=== PATIENT | female | born 1950 | race Caucasian/White ===

== ENCOUNTER 2025-01-09 09:41 | Emergency (ER) | payer BC, MEDICARE ==
[2025-01-09] MEDS: Sodium Chloride 0.9% 1,000 ML IV ONE (10:15)
[2025-01-09 10:23] LABS: HEMATOCRIT 40.3 % (34.2-48.2); HEMOGLOBIN 13.4 g/dL (11.4-15.5); MEAN CORPUSCULAR HEMOGLOBIN 33.5 pg (23.9-33.9); MEAN CORPUSCULAR HGB CONC 33.2 g/dL (31.9-34.8); MEAN CORPUSCULAR VOLUME 100.9 fL (76.7-100.5); MEAN PLATELET VOLUME 8.8 fL (7.1-12.4); PLATELET COUNT,PLT 47 x10(3)uL (151-488); RED BLOOD CELL COUNT 3.99 x10(6)uL (3.60-5.20); RED CELL DISTRIBUTION WIDTH 16.1 % (12.3-16.5)
[2025-01-09 10:30] LABS: A/G RATIO 0.5; ALANINE AMINOTRANSFERASE,ALT 63 U/L (12-36); ALBUMIN 2.4 g/dL (3.2-4.6); ALKALINE PHOSPHATASE 170 IU/L (56-112); ASPARTATE AMNIOTRANSFERASE,AST 38 IU/L (5-25); BILIRUBIN TOTAL 0.9 mg/dL (0.1-1.3); BLOOD UREA NITROGEN,BUN 22 mg/dL (7-18); BUN/CREATININE RATIO 12.9 (9-20); CALCIUM 8.5 mg/dL (8.6-10.2); CARBON DIOXIDE,CO2 25 mmol/L (21-32); CHLORIDE,CL 96 mmol/L (100-110); CREATININE 1.7 mg/dL (0.55-1.02); EST CRCL DRUG DOSING (CG) 23.31 mL/min; ESTIMATED GFR 31 mL/min (>60); GLUCOSE RANDOM 113 mg/dL (80-116); PROTEIN TOTAL,TP 7.1 g/dL (6.0-8.0); SODIUM,NA 135 mmol/L (135-145)
[2025-01-09] MEDS: Sodium Chloride 0.9% 10 ML Syringe FLUSH PRN (10:30)
[2025-01-09 10:40] LABS: POTASSIUM,K 2.7 mmol/L (3.5-5.3)
[2025-01-09 10:41] LABS: LACTIC ACID 3.3 mmol/L (0.4-2.0)
[2025-01-09 10:42] LABS: WHITE BLOOD CELL COUNT,WBC 0.8 x10-3/uL (3.0-10.3)
[2025-01-09 11:09] LABS: BAND PERCENT MAN 4 % (0-6); EOSINOPHILS PERCENT MAN 8 % (0-5); LYMPHOCYTES PERCENT MAN 4 % (13-37); MONOCYTES PERCENT MAN 8 % (4-12); SEG NEUTROPHILS PERCENT MAN 76 % (46-82)
[2025-01-09] MEDS: cefTRIAXone 1 GM Vial IVPUSH ONE (11:10)
[2025-01-09] MEDS: Azithromycin 500 MG Tab PO ONE (11:21)
[2025-01-09] MEDS: Potassium Chloride 20 MEQ Tab.ER PO ONE (11:21)
[2025-01-09] MEDS: Sodium Chloride 0.9% 1,000 ML IV SCH (12:00)
== END 2025-01-09 15:49 ==
LOC: FB.ED 09:41
DX: J18.9 Pneumonia, unspecified organism (principal); C90.02 Multiple myeloma in relapse; D70.1 Agranulocytosis secondary to cancer chemotherapy; T45.1X5A Adverse effect of antineoplastic and immunosuppressive drugs, initial encounter
CPT/HCPCS: 36415; 71250; 80053; 83605; 85025; 86140; 87040; 96361; 96374; 99285; 99285-25; A9270-GY; J0696; J7030